=== PATIENT | female | born 1985 | race Hispanic/Latino ===

== ENCOUNTER 2017-05-30 01:48 | Emergency (ER) | payer SELFPAY ==
[2017-05-30 02:03] VITALS: BP 124/84; PULSE 82; RESP 16; TEMP 98.2; O2SAT 98
== END 2017-05-30 03:00 | disposition home or self-care (01) ==
LOC: C.ER 01:48
DX: F10.129 Alcohol abuse with intoxication, unspecified (principal); Y90.9 Presence of alcohol in blood, level not specified